=== PATIENT | male | born 1990 | race Hispanic/Latino ===

== ENCOUNTER 2019-11-22 21:24 | Emergency (ER) | payer SELFPAY ==
[~2019-11-22] VITALS: Ht 175.3 cm; Wt 61.2 kg
[2019-11-22] MEDS ORDERED: LIDOCAINE 1% W/EPINEPHRINE 20 ML VIAL INJ ONE (21:30)
[2019-11-22] MEDS ORDERED: TETANUS/DIPHTHERIA TOX ADULT 0.5 ML SYR IM ONE (21:30)
--- NOTE | 2019-11-22 21:33 | Emergency Department Note ---
History of Present Illnes History of Present Illness Chief Complaint: Head/Face Trauma History of Present Illness This is a 28 year old male presents to the ED after a saw bounced off surface and impacted forehead. Arrival Mode: [employer] Required: No Onset (how long ago): hour(s) (3) Location: forehead Onset quality: sudden Duration (how long): hour(s) (3) Timing of current episode: constant Progression: unchanged Chronicity: new Context: Reports trauma/injury Relieving factors: none Exacerbating factors: none Associated symptoms: Reports denies other symptoms Treatments prior to arrival: none Past Medical/Family History Physician Review I have reviewed the patient's past medical and family history. Any updates have been documented here. Past Medical History Recent Fever: No Clinical Suspicion of Infectio: No New/Unexplained Change in Ment: No Past Medical History: None Past Surgical History: None Social History Counseling Performed: No Alcohol Use: None Review of Systems Review of Systems Constitutional: Reports no symptoms EENTM: Reports no symptoms Cardiovascular: Reports no symptoms Respiratory: Reports no symptoms Gastrointestinal: Reports no symptoms Genitourinary: Reports no symptoms Musculoskeletal: Reports no symptoms Integumentary: Reports no symptoms Neurological: Reports no symptoms Psychological: Reports no symptoms Endocrine: Reports no symptoms Hematological/Lymphatic: Reports no symptoms Physical Exam Related Data Allergies: Coded Allergies: No Known Allergies (Unverified , 11/22/19) Triage Vital Signs Vital Signs Date Time Temp Pulse Resp B/P (MAP) Pulse Ox O2 Delivery O2 Flow Rate FiO2 11/22/19 21:28 98.7 64 20 123/77 100 Room Air Vital signs reviewed: Yes Physical Exam CONSTITUTIONAL Constitutional: Present well-developed, Present well-nourished HENT HENT: Present normocephalic, Present atraumatic, Present oropharynx clear/moist, Present nose normal HENT L/R: Present left ext ear normal, Present right ext ear normal EYES Eyes: Reports PERRL, Reports conjunctivae normal NECK Neck: Present ROM normal PULMONARY Pulmonary: Present effort normal, Present breath sounds normal CARDIOVASCULAR Cardiovascular: Present regular rhythm, Present heart sounds normal, Present capillary refill normal, Present normal rate GASTROINTESTINAL Abdominal: Present soft, Present nontender, Present bowel sounds normal GENITOURINARY Genitourinary: Present exam deferred SKIN Skin: Present other (5 cm laceration vertical forehead) MUSCULOSKELETAL Musculoskeletal: Present ROM normal NEUROLOGICAL Neurological: Present alert, Present oriented x 3, Present no gross motor or sensory deficits PSYCHOLOGICAL Psychological: Present mood/affect normal, Present judgement normal Procedures Laceration Laceration: Laceration 1 Site: face Size (cm): 5 Description: linear Depth: simple, single layer Local anesthesia: with epi Pre-repair: wound exposed, deep structures intact Skin layer closed with: vicryl Size (cm): 5-0 Number of sutures: 9 Technique: simple, interrupted Assessment & Plan Medical Decision Making MDM Diff Dx : laceration, skull involvement fx Assessment & Plan Final Impression: (1) Forehead laceration MINDY HERNANDEZ DO Nov 22, 2019 21:33
[2019-11-22 22:00] VITALS: BP 129/76
== END 2019-11-22 22:06 | disposition home or self-care (01) ==
LOC: ER 21:33
DX: S01.81XA Laceration without foreign body of other part of head, initial encounter (principal); W45.8XXA Other foreign body or object entering through skin, initial encounter
CPT/HCPCS: 90471; 90714; 99283